=== PATIENT | female | born 1970 | race Caucasian/White ===

== ENCOUNTER → 2017-09-23 | Outpatient (CLI) | payer OTHER ==
[~2017-09-23] MED LIST: /ESOM40CA PO; CEFT500T PO; KLON0.5T PO; LEXA5SOL PO; PROZ20CA11 PO; TRAZ100T2 PO; XANA0.5T PO; XANA1TAB2 PO
--- NOTE | 2017-09-24 06:58 | REP ---
CHEST, TWO VIEWS: There is no evidence of acute infiltrate. No pleural effusion is seen. The heart is normal in size. The mediastinal silhouette is unremarkable. The visualized osseous structures are intact. IMPRESSION: No acute pulmonary disease. Signed by Edwin Harden MD 09/24/2017 05:26 P
== END ==
LOC: M LRY 13:58
PROVIDERS: ATTEND Nurse Practitioner Family
DX: R05 Cough (principal)
CPT/HCPCS: 71020; 94640; G0463; J7644